=== PATIENT | male | born 1945 | race Caucasian/White ===

== ENCOUNTER → 2016-10-13 | Outpatient (CLI) | payer OTHER ==
[~2016-10-13] MED LIST: ACETAMINOPHEN-1 EAC1 PO; ADULT LOW DOSE81 MG PO; AUGMENTIN 875875 MG PO; CARDIZEM CD240 MG PO; ELIQUIS5 MG PO; ESBRIET267 MG PO; FLECAINIDE ACET50 M1 PO; LISINOPRIL2.5 MG PO; METFORMIN HCL500 MG PO; PRADAXA150 MG PO; VIBRAMYCIN 100100 M2 PO
[2016-10-13 08:35] LABS: HEMATOCRIT 44.2 % (42.0-52.0); MCH 32.4 pg (26.0-34.0); MCHC 33.9 % (28.0-37.0); MCV 95.7 fL (80.0-100.0); RBC 4.62 mil/uL (4.50-6.00); RDW 13.7 % (10.5-14.5); WBC 7.5 thou/uL (4.0-11.0)
[2016-10-13 08:44] LABS: CALCIUM 9.2 mg/dL (8.5-10.1); CREATININE 1.2 mg/dL (0.6-1.3); POTASSIUM 4.5 mmol/L (3.5-5.1)
[2016-10-13 08:50] LABS: TOTAL BILIRUBIN 0.3 mg/dL (<0.1-1.0); TOTAL PROTEIN 7.6 g/dL (6.4-8.2)
== END ==
LOC: CAT 08:11
PROVIDERS: Internal Medicine Cardiovascular Disease
DX: I48.91 Unspecified atrial fibrillation (principal)

== ENCOUNTER 2016-10-18 06:34 | Outpatient (CLI) | payer OTHER ==
[~2016-10-18] VITALS: Ht 188 cm; Wt 79.4 kg
--- NOTE | ~2016-10-18 | P ---
[facility] [place] [address] PROCEDURE REPORT Name: CONNIE WELLS Room #: DEP [facility] Maureen#: [id number] Admission: 10/18/16 Attend Phys: Abe Torres MD Discharge: 10/19/16 Date of : 49 Report #: [id number] THIS REPORT FOR: //name// CC: Abe Rojas PREOPERATIVE DIAGNOSES: 1. Atrial fibrillation. 2. Pulmonary fibrosis. POSTOPERATIVE DIAGNOSES: 1. Atrial fibrillation. 2. Pulmonary fibrosis. HISTORY OF PRESENT ILLNESS: The patient is a 70-year-old male with history of paroxysmal atrial fibrillation as well as pulmonary fibrosis who has failed antiarrhythmic drugs and is here for an ablation. ANESTHESIA: The patient underwent general anesthesia with no anesthesia related complications. 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 PROCEDURE: The patient underwent informed consent. We discussed the details of the procedure including the risks, which include, but not limited to bleeding, vascular damage, cardiac perforation as well as stroke or MT. He understood these risks and is willing to proceed. He was brought to the EP laboratory in a fasting and sedated state and prepped and draped in a sterile fashion. Of note, initially when he was in the room, he was in sinus rhythm, but then went into atrial fibrillation with a ventricular rate of 460 milliseconds, QRS duration 90 milliseconds, QT interval 290 milliseconds. Next, I obtained access to the right femoral vein times 3 and placed sheaths using the modified Seldinger technique. I placed an ice catheter and a Decapolar catheter into the coronary sinus. Next, the patient was systemically heparinized with his heparin and then a transseptal was performed using an SL1 sheath and a [place] needle. Once I was transseptal, I exchanged the SL1 sheath for a cryo sheath and placed the cryoballoon into the left atrium. Next, I performed isolation of the 4 pulmonary veins. The left superior pulmonary vein required a total of 3 freezes to obtain isolation. There was far field left atrial appendage signals noted, but there was entrance and exit block. Next, the left inferior pulmonary vein was isolated in 2 freezes. The right superior pulmonary vein was isolated within 30 seconds of the first freeze and a total of 2 freezes was performed. The right inferior pulmonary vein was isolated in 2 freezes as well. While performing the freezes on the right-sided veins, phrenic nerve pacing was performed and there is no phrenic nerve compromise. Post-ablation, the patient had converted back to sinus rhythm on his own and the patient was in with sinus with a sinus cycle [address] [address] PROCEDURE REPORT Name: CONNIE WELLS Room #: DEP TANYA Reddy#: [id number] Admission: 10/18/16 Attend Phys: Abe Torres MD Discharge: 10/19/16 Date of : 49 Report #: [id number] length of 1036 milliseconds, HI interval 150 milliseconds, QRS duration 90 milliseconds, QT interval 410 milliseconds. Post ablation, all veins were reinterrogated and there was evidence of entrance and exit block. As such, I verified with my ice catheter that there was no pericardial effusion. The patient received systemic protamine and once the ACT was within acceptable range, all catheters and sheaths were pulled. Hemostasis was obtained. The patient awoke neurologically and hemodynamically intact with no complications and no significant bleeding. CONCLUSIONS: Successful AFib ablation with isolation of the 4 pulmonary veins with the cryoablation balloon. <ELECTRONICALLY SIGNED> By: Abe Torres MD 10/27/16 1046 1154 1728 Abe Torres MD /nt
--- NOTE | ~2016-10-18 | D ---
[facility] [place] [address] DISCHARGE SUMMARY Name: CONNIE WELLS Room #: DEP Amanda Reddy#: [id number] Admission: 10/18/16 Attend Phys: Abe Torres MD Discharge: 10/19/16 Date of : 49 Report #: [id number] THIS REPORT FOR: //name// CC: Abe Rojas DATE OF SERVICE: 10/19/2016 DISCHARGE DIAGNOSES: 1. Paroxysmal atrial fibrillation. 2. Pulmonary fibrosis. PROCEDURES PERFORMED: AFib ablation. HISTORY: The patient is a 70-year-old with known paroxysmal atrial fibrillation as well as pulmonary fibrosis, who has had continued episodes despite antiarrhythmic drug therapy. He is here for an ablation. The patient underwent successful AFib ablation with the cryoablation balloon with isolation of the 4 pulmonary veins. There were no intraprocedural complications. HOSPITAL COURSE: The patient was monitored overnight on telemetry. He remained in sinus rhythm. PHYSICAL EXAMINATION: Following day, his vitals were stable with stable oxygen saturations. He did not have any pulmonary issues post-procedure. His physical exam was within normal limits with normal heart that was regular rate and rhythm. Lungs were clear to auscultation bilaterally. Abdomen soft, nontender. Right groin showed some mild ecchymosis, but no hematoma or discomfort. As such, he was deemed stable for discharge home with instructions to follow up with me in 3 months. Discharge instructions were reviewed. As such, he will be discharged home on his identical home medications including Pradaxa 150 twice a day, flecainide and diltiazem. <ELECTRONICALLY SIGNED> By: Abe Torres MD 10/22/16 1224 1527 1839 Abe Torres MD /nt
[~2016-10-18 06:34] MED LIST changes: -ACETAMINOPHEN-1 EAC1 PO; -AUGMENTIN 875875 MG PO; -ESBRIET267 MG PO; -PRADAXA150 MG PO; -VIBRAMYCIN 100100 M2 PO
[2016-10-18] MEDS ORDERED: PRADAXA150 MG PO (06:51)
[2016-10-18] MEDS ORDERED: ESBRIET267 MG PO (06:52)
[2016-10-18 07:05] LABS: ABSOLUTE NEUTROPHILS 4.1 thou/uL (1.4-8.2); BASOPHILS 0.7 % (0.0-2.0); HEMATOCRIT 43.2 % (42.0-52.0); HEMOGLOBIN 14.6 gm/dL (14.0-18.0); MCH 32.4 pg (26.0-34.0); MCHC 33.9 % (28.0-37.0); MCV 95.6 fL (80.0-100.0); MONOCYTES 10.9 % (1.0-8.0); PLATELET COUNT 163 thou/uL (150-400); POLYS 62.4 % (36.0-66.0); RBC 4.51 mil/uL (4.50-6.00); RDW 13.8 % (10.5-14.5); WBC 6.6 thou/uL (4.0-11.0)
[2016-10-18 07:06] VITALS: BP 137/74
[2016-10-18 07:13] LABS: MANUAL DIFF NO
[2016-10-18 07:16] LABS: CALCIUM 9.2 mg/dL (8.5-10.1); CREATININE 1.1 mg/dL (0.6-1.3); POTASSIUM 4.1 mmol/L (3.5-5.1)
[2016-10-18 07:19] LABS: APTT 26.8 Seconds (24.5-32.8); PROTIME 10.6 Seconds (9.3-11.4)
[2016-10-18 07:22] LABS: TOTAL BILIRUBIN 0.5 mg/dL (<0.1-1.0)
[2016-10-18 17:35] VITALS: BP 121/75
[2016-10-18 19:30] VITALS: BP 108/67
[2016-10-18 23:46] VITALS: BP 112/68
[2016-10-19 03:06] VITALS: BP 117/78
[2016-10-19 08:04] VITALS: BP 115/77
[2016-10-19 08:35] VITALS: BP 110/67
[2016-10-19 11:46] VITALS: BP 108/68
[2016-10-19 15:41] VITALS: BP 108/68
[2016-10-19 15:44] VITALS: BP 108/68
[2016-12-16] MEDS ORDERED: VIBRAMYCIN 100100 M2 PO (04:47)
[2016-12-16] MEDS ORDERED: AUGMENTIN 875875 MG PO (04:47)
[2016-12-16] MEDS ORDERED: ACETAMINOPHEN-1 EAC1 PO (04:47)
== END 2016-10-19 16:40 | disposition home or self-care (01) ==
LOC: 2N 06:34 → CATH 06:34 → 2N 16:56 → CATH 10-19 16:40
PROVIDERS: Internal Medicine Cardiovascular Disease
DX: I48.0 Paroxysmal atrial fibrillation (principal); J84.10 Pulmonary fibrosis, unspecified; K21.9 Gastro-esophageal reflux disease without esophagitis; E11.9 Type 2 diabetes mellitus without complications; Z85.828 Personal history of other malignant neoplasm of skin
CPT/HCPCS: 10081; 62110; 65020; 65040; 65043; 70005

== ENCOUNTER → 2017-03-10 | Outpatient (CLI) | payer OTHER ==
[~2017-03-10] VITALS: Ht 188 cm; Wt 72.6 kg
[~2017-03-10] MED LIST changes: +ACETAMINOPHEN-1 EAC1 PO; +AUGMENTIN 875875 MG PO; +BACTRIM DS TAB1 EACH PO; +CALCIUM GLUCONA50 MG PO; +CARDIZEM CD180 MG PO; +ESBRIET267 MG PO; +HUMALOG KW200 UNIT/1 SQ; +LOPERAMIDE 2 MG2 M1 PO; +NOVOLIN N100 UNIT/3 SQ; +OFEV150 MG PO; +OMEPRAZOLE 20 M20 M1 PO; +PRADAXA150 MG PO; +PREDNISONE 10 M10 MG PO; +PROMETHAZINE/C118 ML PO; +VIBRAMYCIN 100100 M2 PO; +XANAX 0.25 MG0.25 MG PO; +ZYRTEC10 M5 PO
--- NOTE | ~2017-03-10 | P ---
[facility] [place] [address] PROCEDURE REPORT Name: CONNIE WELLS Room #: REG [facility] John.#: [id number] Admission: 03/10/17 Attend Phys: Abe Torres MD Discharge: Date of : 49 Report #: [id number] THIS REPORT FOR: //name// CC: Abe Rojas DATE OF SERVICE: 03/10/2017 PREOPERATIVE DIAGNOSIS: Atrial fibrillation. POSTOPERATIVE DIAGNOSIS: Atrial fibrillation. DESCRIPTION OF PROCEDURE: The patient was brought to the procedure suite in fasting and unsedated state. He was sedated by anesthesiology service. A 200 joule synchronized cardioversion was performed with buddhism of sinus rhythm. There were no complications. CONCLUSIONS: Successful buddhism of sinus rhythm by DC cardioversion. By: [id number] Abe Torres MD /nt
[2017-03-10 07:23] VITALS: BP 119/80
[2017-03-10 07:31] LABS: HEMATOCRIT 41.8 % (42.0-52.0); HEMOGLOBIN 13.9 gm/dL (14.0-18.0); MCH 31.7 pg (26.0-34.0); MCHC 33.4 g/dL (28.0-37.0); MCV 95.1 fL (80.0-100.0); RBC 4.39 mil/uL (4.50-6.00); RDW 14.8 % (10.5-14.5); WBC 11.9 thou/uL (4.0-11.0)
[2017-03-10 07:40] LABS: CALCIUM 9.2 mg/dL (8.5-10.1); CREATININE 0.9 mg/dL (0.7-1.3); POTASSIUM 4.9 mmol/L (3.5-5.1)
[2017-03-10 07:45] LABS: ALBUMIN 3.2 g/dL (3.4-5.0); TOTAL BILIRUBIN 0.2 mg/dL (<0.1-1.0); TOTAL PROTEIN 6.9 g/dL (6.4-8.2)
[2017-03-10 07:48] LABS: APTT 21.7 Seconds (24.5-32.8); PROTIME 10.2 Seconds (9.3-11.4)
== END | disposition home or self-care (01) ==
LOC: CATH 06:37
PROVIDERS: Internal Medicine Cardiovascular Disease
DX: I48.91 Unspecified atrial fibrillation (principal); K21.9 Gastro-esophageal reflux disease without esophagitis; E11.9 Type 2 diabetes mellitus without complications; Z85.9 Personal history of malignant neoplasm, unspecified; Z90.49 Acquired absence of other specified parts of digestive tract; J84.10 Pulmonary fibrosis, unspecified; I48.92 Unspecified atrial flutter; Z82.49 Family history of ischemic heart disease and other diseases of the circulatory system
CPT/HCPCS: 62110; 62900